=== PATIENT | male | born 1945 | race Caucasian/White ===

== ENCOUNTER → 2017-02-14 | Outpatient (CLI) | payer MEDICARE ==
[2014-12-12 14:56] VITALS: BP 124/80
[~2017-02-14] MED LIST: DILT180C29 PO; ESOM20CA30 PO; FEXO180T81 PO; SIMV10TA3 PO; WARF5TAB7 PO
--- NOTE | 2017-02-14 14:29 | KCIC ---
CT of the paranasal sinuses HISTORY: Chronic frontal sinusitis. Exposure: One or more of the following individualized dose reduction techniques were utilized for this examination: 1. Automated exposure control 2. Adjustment of the mA and/or kV according to patient size 3. Use of iterative reconstruction technique. TECHNIQUE: Standard noncontrast images are obtained with multiplanar reconstructions. FINDINGS: Only minimal mucosal thickening at the maxillary sinuses bilaterally. Only minimal ethmoid sinus mucosal thickening. Frontal sinus and sphenoid sinus are clear. No fluid levels are identified. The ostiomeatal units are patent. Mild deviation of the nasal septum towards the left. There is near complete opacification of the mastoid air cells bilaterally. There appears to be mild soft tissue within the middle ears bilaterally. The right globe is small and dense. IMPRESSION: 1. Only minimal maxillary and ethmoid sinus mucosal thickening. 2. Incidentally noted mastoid and middle ear disease. Electronically signed by: Shukri Ziegler MD (02/14/2017 2:26 PM) [facility]
--- NOTE | 2017-02-15 10:15 | KCIC ---
CT of the paranasal sinuses HISTORY: Chronic frontal sinusitis. Exposure: One or more of the following individualized dose reduction techniques were utilized for this examination: 1. Automated exposure control 2. Adjustment of the mA and/or kV according to patient size 3. Use of iterative reconstruction technique. TECHNIQUE: Standard noncontrast images are obtained with multiplanar reconstructions. FINDINGS: Only minimal mucosal thickening at the maxillary sinuses bilaterally. Only minimal ethmoid sinus mucosal thickening. Frontal sinus and sphenoid sinus are clear. No fluid levels are identified. The ostiomeatal units are patent. Mild deviation of the nasal septum towards the left. There is near complete opacification of the mastoid air cells bilaterally. There appears to be mild soft tissue within the middle ears bilaterally. The right globe is small and dense. IMPRESSION: 1. Only minimal maxillary and ethmoid sinus mucosal thickening. 2. Incidentally noted mastoid and middle ear disease. Electronically signed by: Newton Ziegler MD (02/14/2017 2:26 PM) [facility] DICTATED and SIGNED BY: NEWTON ZIEGLER MD DATE: 02/14/17 1421 [facility]
== END | disposition home or self-care (01) ==
LOC: KCIC CT 09:59
PROVIDERS: ATTEND Otolaryngology
DX: J32.1 Chronic frontal sinusitis (principal); J34.2 Deviated nasal septum; H93.8X2 Other specified disorders of left ear
CPT/HCPCS: 70486

== ENCOUNTER → 2017-08-18 | Outpatient (CLI) | payer MEDICARE | END | disposition home or self-care (01) | LOC: KCIC CT 11:50 | DX: H65.33 Chronic mucoid otitis media, bilateral (principal) | CPT/HCPCS: 70480 ==